=== PATIENT | male | born 1955 | race American Indian/Alaskan Native ===

== ENCOUNTER 2021-02-26 05:15 | Observation (INO) | payer BC, MEDICARE ==
[2021-02-26] MEDS ORDERED: SODIUM CHLORIDE 0.9% 1000 ML 1,000 ML IV ONE ×2 (05:25→07:23)
[2021-02-26 06:21] LABS: Basophils # (Auto) 0.1 K/mm3 (0.0-0.1); Basophils % (Auto) 0.6 % (0.0-1.8); Eosinophils % (Auto) 0.2 % (0.0-4.3); Hematocrit 21.7 % (35.5-45.6); Hemoglobin 7.1 gm/dl (11.8-15.2); Lymphocytes # (Auto) 2.1 K/mm3 (1.2-5.4); Lymphocytes % (Auto) 16.3 % (13.4-35.0); Mean Corpuscular HGB Conc 33 % (32-34); Mean Corpuscular Volume 89 fl (84-94); Monocytes # (Auto) 0.8 K/mm3 (0.0-0.8); Platelet Count 238 K/mm3 (140-440); Red Blood Count 2.44 M/mm3 (3.65-5.03); Red Cell Distribution Width 14.5 % (13.2-15.2)
--- NOTE | 2021-02-26 06:25 | Emergency Department Report ---
ED General Adult HPI - General Chief complaint: Syncope Stated complaint: SYNCOPE Time Seen by Provider: 02/26/21 06:11 Source: patient, EMS Mode of arrival: Stretcher Limitations: No Limitations - History of Present Illness Initial comments: Patient is a 65-year-old male with history of hypertension hypercholesterolemia presents to emergency department for evaluation of a syncopal episode which occurred while he was urinating just prior to arrival. Patient states his found him on the floor, called the ambulance. On medic arrival, patient states he had to defecate, notes his stool has been black x2 days. Patient denies chest pain, complains of mild lightheadedness. Patient denies fever, denies head injury status post fall. Patient does complain of mild left flank pain after falling. - Related Data Allergies Allergy/AdvReac Type Severity Reaction Status Date / Time No Known Allergies Allergy Unverified 02/26/21 05:27 ED Review of Systems ROS: Stated complaint: SYNCOPE Other details as noted in HPI Comment: All other systems reviewed and negative ED Past Medical Hx - Past Medical History Previous Medical History?: Yes Hx Hypertension: Yes Additional medical history: Hyperlipedemia - Social History Smoking Status: Former Smoker ED Physical Exam - General Limitations: No Limitations General appearance: alert, in no apparent distress - Head Head exam: Present: atraumatic, normocephalic - Eye Eye exam: Present: normal appearance - ENT ENT exam: Present: mucous membranes moist - Neck Neck exam: Present: normal inspection - Respiratory Respiratory exam: Present: normal lung sounds bilaterally. Absent: respiratory distress - Cardiovascular Cardiovascular Exam: Present: regular rate, normal rhythm - GI/Abdominal GI/Abdominal exam: Present: soft, normal bowel sounds - Rectal Rectal exam: Present: heme (+) stool - Extremities Exam Extremities exam: Present: normal inspection - Back Exam Back exam: Present: normal inspection - Neurological Exam Neurological exam: Present: alert, oriented X3 - Psychiatric Psychiatric exam: Present: normal affect, normal mood - Skin Skin exam: Present: warm, dry, intact, normal color. Absent: rash ED Course Vital Signs 02/26/21 02/26/21 05:31 07:24 Temperature 97.8 F Pulse Rate 82 Pulse Rate [ 108 H Lying] Pulse Rate [ 99 H Sitting] Pulse Rate [ 113 H Standing] Respiratory 18 Rate Blood Pressure 142/70 Blood Pressure 91/59 [Lying] Blood Pressure 94/58 [Sitting] Blood Pressure 94/52 [Standing] O2 Sat by Pulse 99 Oximetry - Reevaluation(s) Reevaluation #1: 02/26/21 07:31 Patient orthostatic, treated with IV normal saline x1, treated with Protonix 80 mg IV x1 for suspected upper GI bleed. Reevaluation #2: 02/26/21 07:43 [facility] called multiple times without return phone call ED Medical Decision Making - Lab Data Result diagrams: 02/26/21 06:05 02/26/21 06:05 - EKG Data -: EKG Interpreted by Me (Sinus rhythm at 80, no ST-T changes, normal QRS) Critical care attestation.: If time is entered above; I have spent that time in minutes in the direct care of this critically ill patient, excluding procedure time. ED Disposition Clinical Impression: Upper gastrointestinal hemorrhage, Syncope Disposition: OP ADMIT IP TO THIS HOSP Is pt being admited?: Yes Condition: Stable Instructions: Syncope (ED) Referrals: PRIMARY CARE, [Primary Care Provider] - 3-5 Days
[2021-02-26 06:30] LABS: INR 1.25 (0.87-1.13)
[2021-02-26 06:31] LABS: Partial Thromboplastin Time 21.1 Sec. (24.2-36.6)
--- NOTE | 2021-02-26 06:41 | XRay Report ---
CHEST 1 VIEW INDICATION: dyspnea. COMPARISON: None FINDINGS: SUPPORT DEVICES: None. HEART: Within normal limits. LUNGS/PLEURA: No acute air space or interstitial disease. ADDITIONAL FINDINGS: None. IMPRESSION: 1. No acute findings. Signer Name: London Munson MD Signed: 02/26/2021 6:37 AM Workstation Name: [id number]
[2021-02-26 06:43] LABS: Alanine Aminotransferase 13 units/L (7-56); Albumin 3.1 g/dL (3.9-5); BUN/Creatinine Ratio 52; Blood Urea Nitrogen 47 mg/dL (9-20); Calcium 8.1 mg/dL (8.4-10.2); Hemolysis Index 2
[2021-02-26] MEDS ORDERED: PANTOPRAZOLE 40 MG INJ IV ONE (07:27)
--- NOTE | 2021-02-26 08:14 | Cat Scan Report ---
CT ABDOMEN AND PELVIS WITH CONTRAST INDICATION / CLINICAL INFORMATION: Left flank pain post trauma. TECHNIQUE: Axial CT images were obtained through the abdomen and pelvis following the administration of intraven ous contrast. All CT scans at this location are performed using CT dose reduction for ALARA by means of automated exposure control. COMPARISON: None available. FINDINGS: LOWER CHEST: No significant abnormality. LIVER: No significant abnormality. GALLBLADDER: No significant abnormality. PANCREAS: No significant abnormality. SPLEEN: No significant abnormality. ADRENALS: No significant abnormality. KIDNEYS / URETERS: A few left-sided parapelvic and renal cysts are seen. No additional significant ab normality. URINARY BLADDER: No significant abnormality. REPRODUCTIVE ORGANS: No significant abnormality. STOMACH / SMALL BOWEL: The stomach is distended without significant gastric or small bowel abnormalit y. COLON: No significant abnormality. APPENDIX: No significant abnormality. PERITONEUM: No free fluid. No free air. No fluid collection. LYMPH NODES: No significant adenopathy. AORTA / ARTERIES: No significant abnormality. IVC / VEINS: No significant abnormality. SKELETAL SYSTEM: There is a nondisplaced fracture of the posterior 10th rib. There may also be a tiny nondisplaced fracture of the posterior ninth rib. ADDITIONAL FINDINGS: None. IMPRESSION: 1. Nondisplaced fracture of the posterior 10th rib with questionable nondisplaced fracture of the pos terior ninth rib as well. No pneumothorax or solid organ injury. Signer Name: Rk Tubbs MD Signed: 02/26/2021 8:10 AM Workstation Name: [id number]
--- NOTE | 2021-02-26 08:20 | History and Physical Report ---
History of Present Illness Date of examination: 02/26/21 Date of admission: 02/26/21 Chief complaint: GI bleed History of present illness: Patient is a 65-year-old male with history of hypertension hypercholesterolemia currently visiting his son in [facility] from [place] presents to emergency department for evaluation of a syncopal episode which occurred while he was urinating just prior to arrival. Patient states his found him on the floor, called the ambulance. On medic arrival, patient states he had to defecate, notes his stool has been black x2 days. Patient denies chest pain, complains of mild lightheadedness. Patient denies fever, denies head injury status post fall. Patient does complain of mild left flank pain after falling. Which he rates 3 out of 10 intensity otherwise no new complaints. He reports that he takes naproxen daily. Past History Past Medical History: hypertension, hyperlipidemia Past Surgical History: No surgical history Social history: Family history: no significant family history Medications and Allergies Allergies Allergy/AdvReac Type Severity Reaction Status Date / Time No Known Allergies Allergy Unverified 02/26/21 05:27 Active Meds: Active Medications Acetaminophen (Acetaminophen 325 Mg Tab) 650 mg PO Q4H PRN PRN Reason: Pain MILD(1-3)/Fever >100.5/BLEDSOE Albuterol (Albuterol 2.5 Mg/3 Ml Nebu) 2.5 mg IH Q3HRT PRN PRN Reason: Shortness Of Breath Sodium Chloride (Nacl 0.9% 1000 Ml) 1,000 mls @ 999 mls/hr IV BOLUS ONE Stop: 02/26/21 08:23 Last Admin: 02/26/21 07:41 Dose: 999 mls/hr Documented by: Pantoprazole Sodium 80 mg/ (Sodium Chloride) 100 mls @ 10 mls/hr IV DIRECT BRITNI Dextrose/Sodium Chloride (D5/0.45ns) 1,000 mls @ 125 mls/hr IV DIRECT BRITNI Ondansetron HCl (Ondansetron 4 Mg/2 Ml Inj) 4 mg IV Q4H PRN PRN Reason: Nausea And Vomiting Sodium Chloride (Sodium Chloride 0.9% 10 Ml Flush Syringe) 10 ml IV BID BRITNI Sodium Chloride (Sodium Chloride 0.9% 10 Ml Flush Syringe) 10 ml IV PRN PRN PRN Reason: LINE FLUSH Review of Systems Constitutional: chronic pain (LEFT SHOULDER), no weight loss, no weight gain, no fever, no chills, no sweats, no night sweats, no chronic headaches, no poor appetite, no daytime sleepiness Cardiovascular: high blood pressure, no orthopnea, no palpitations, no rapid/i rregular heart beat, no edema, no syncope, no lightheadedness Respiratory: no cough with sputum, no excessive sputum, no shortness of breath, no dyspnea on exertion Gastrointestinal: melena (X 2 DAYS), no abdominal pain, no nausea, no vomiting, no diarrhea, no constipation, no change in bowel habits Musculoskeletal: no low back pain, no muscle weakness Integumentary: no rash, no pruritis, no sores Exam - Physical Exam Narrative exam: VITAL SIGNS: Reviewed. GENERAL: The patient appears normally developed, Vital signs as documented. HEAD: No signs of head trauma. EYES: Pupils are equal. Extraocular motions intact. EARS: Hearing grossly intact. MOUTH: Oropharynx is normal. NECK: No adenopathy, no JVD. CHEST: Chest with clear breath sounds bilaterally. No wheezes, rales, or rhonchi. CARDIAC: Regular rate and rhythm. S1 and S2, without murmurs, gallops, or rubs. VASCULAR: No Edema. Peripheral pulses normal and equal in all extremities. ABDOMEN: Soft, non tender and non distended. No rebound or guarding, and no masses palpated. Bowel Sounds normal. MUSCULOSKELETAL: Tenderness to palpate in the left flank area. Good range of motion of all major joints. Extremities without clubbing, cyanosis or edema. NEUROLOGIC EXAM: Alert and oriented x 3 No focal sensory or strength deficits. Speech normal. Follows commands. PSYCHIATRIC: Mood normal. SKIN: detail exam as documented in skin assessment - Constitutional Vitals: Temp Pulse Resp BP Pulse Ox 97.8 F 108 H 18 91/59 99 02/26/21 05:31 02/26/21 07:24 02/26/21 05:31 02/26/21 07:24 02/26/21 05:31 Results - Labs CBC & Chem 7: 02/26/21 06:05 02/26/21 06:05 Labs: Laboratory Last Values WBC 13.0 K/mm3 (4.5-11.0) H 02/26/21 06:05 RBC 2.44 M/mm3 (3.65-5.03) L 02/26/21 06:05 Hgb 7.1 gm/dl (11.8-15.2) L 02/26/21 06:05 Hct 21.7 % (35.5-45.6) L 02/26/21 06:05 MCV 89 fl (84-94) 02/26/21 06:05 MCH 29 pg (28-32) 02/26/21 06:05 MCHC 33 % (32-34) 02/26/21 06:05 RDW 14.5 % (13.2-15.2) 02/26/21 06:05 Plt Count 238 K/mm3 (140-440) 02/26/21 06:05 Lymph % (Auto) 16.3 % (13.4-35.0) 02/26/21 06:05 [place] % (Auto) 6.0 % (0.0-7.3) 02/26/21 06:05 Eos % (Auto) 0.2 % (0.0-4.3) 02/26/21 06:05 Baso % (Auto) 0.6 % (0.0-1.8) 02/26/21 06:05 Lymph # (Auto) 2.1 K/mm3 (1.2-5.4) 02/26/21 06:05 [place] # (Auto) 0.8 K/mm3 (0.0-0.8) 02/26/21 06:05 Eos # (Auto) 0.0 K/mm3 (0.0-0.4) 02/26/21 06:05 Baso # (Auto) 0.1 K/mm3 (0.0-0.1) 02/26/21 06:05 Seg Neutrophils % 76.9 % (40.0-70.0) H 02/26/21 06:05 Seg Neutrophils # 10.0 K/mm3 (1.8-7.7) H 02/26/21 06:05 PT 15.5 Sec. (12.2-14.9) H 02/26/21 06:05 INR 1.25 (0.87-1.13) H 02/26/21 06:05 APTT 21.1 Sec. (24.2-36.6) L 02/26/21 06:05 Sodium 144 mmol/L (137-145) 02/26/21 06:05 Potassium 3.6 mmol/L (3.6-5.0) 02/26/21 06:05 Chloride 108.3 mmol/L (98-107) H 02/26/21 06:05 Carbon Dioxide 26 mmol/L (22-30) 02/26/21 06:05 Anion Gap 13 mmol/L 02/26/21 06:05 BUN 47 mg/dL (9-20) H 02/26/21 06:05 Creatinine 0.9 mg/dL (0.8-1.3) 02/26/21 06:05 Estimated GFR > 60 ml/min 02/26/21 06:05 BUN/Creatinine Ratio 52 % 02/26/21 06:05 Glucose 236 mg/dL (75-100) H 02/26/21 06:05 Calcium 8.1 mg/dL (8.4-10.2) L 02/26/21 06:05 Total Bilirubin < 0.20 mg/dL (0.1-1.2) 02/26/21 06:05 AST 12 units/L (5-40) 02/26/21 06:05 ALT 13 units/L (7-56) 02/26/21 06:05 Alkaline Phosphatase 44 units/L (35-129) 02/26/21 06:05 Total Protein 5.2 g/dL (6.3-8.2) L 02/26/21 06:05 Albumin 3.1 g/dL (3.9-5) L 02/26/21 06:05 Albumin/Globulin Ratio 1.5 % 02/26/21 06:05 Blood Type O POSITIVE 02/26/21 06:10 Antibody Screen Negative 02/26/21 06:10 Assessment and Plan Assessment and plan: Patient is a 65-year-old male with history of hypertension hypercholesterolemia currently visiting his son in [facility] from [place] presents to emergency department for evaluation of a syncopal episode which occurred while he was urinating just prior to arrival. Patient states his found him on the floor, called the ambulance. On medic arrival, patient states he had to defecate, notes his stool has been black x2 days. Patient denies chest pain, complains of mild lightheadedness. Patient denies fever, denies head injury status post fall. Patient does complain of mild left flank pain after falling. Which he rates 3 out of 10 intensity otherwise no new complaints. He reports that he takes naproxen daily for pain in the left shoulder which is chronic.. IMPRESSION: 1. Nondisplaced fracture of the posterior 10th rib with questionable nondisplaced fracture of the posterior ninth rib as well. No pneumothorax or solid organ injury. GI bleed Suspect Upper Acute Blood Loss Anemia Syncope secondary GI bleed Non displaced Fracture of the posterior 10th AND 9th Rib Hx of Hypertension, with Hypotension Elevated blood sugar possible underlining diabetes Hypercholestrolemia Leukocytosis Plan Admit to Tele Monitor H/H Q 8HRS, Transfuse if less than 7 Pantoprazole Drip GI consulted Insulin therapy Check glycosylated hemoglobin A1c Fall precautions Pain control Avoid Antipletelets SCD for DVT PROPHY Advance Directives: Yes Plan of care discussed with patient/family: Yes
[2021-02-26] MEDS ORDERED: SODIUM CHLORIDE 0.9% 1000 ML 1,000 ML IV SCH (08:30)
[2021-02-26] MEDS ORDERED: hydrALAZINE 20 MG/1 ML INJ IV PRN (09:00)
[2021-02-26] MEDS ORDERED: ACETAMINOPHEN 325 MG TAB PO PRN (09:00)
[2021-02-26] MEDS ORDERED: D5W/0.45% NACL 1,000 ML IV SCH (09:00)
[2021-02-26] MEDS ORDERED: ALBUTEROL 2.5 MG/3 ML NEBU IH PRN (09:00)
[2021-02-26] MEDS ORDERED: ONDANSETRON 4 MG/2 ML INJ IV PRN (09:00)
[2021-02-26] MEDS ORDERED: DEXTROSE 50% IN WATER (25GM) 50 ML SYRINGE IV PRN (09:00)
[2021-02-26] MEDS ORDERED: SODIUM CHLORIDE 0.9% 500 ML 500 ML IV SCH (09:00)
[2021-02-26] MEDS: PANTOPRAZOLE 80 MG in SODIUM CHLORIDE 0.9% 100 ML IV SCH ×2 (10:02→23:18)
[2021-02-26 11:40] LABS: Hematocrit 22.9 % (35.5-45.6); Hemoglobin 7.5 gm/dl (11.8-15.2)
[2021-02-26] MEDS: INSULIN LISPRO 100 UNIT/ML SUB-Q SCH ×3 (12:26→23:19)
--- NOTE | 2021-02-26 15:49 | Gastroenterology Consultation ---
History of Present Illness - Reason for Consult Consult date: 02/26/21 gi bleed Requesting physician: TAE BRADFORD - History of Present Illness Patient is a 65-year-old male no known history of GI bleeding currently visiting his son in [facility] from [place] presents to emergency department for evaluation of a syncopal episode. Patient reports dark stool for the last 2 days. He reports it is been formed but not liquidy. Denies any abdominal pain. He does report taking Naprosyn daily for his shoulder pain Reports never had an upper endoscopy, no known family history of gastric cancer or gastric ulcers Reports had a colonoscopy that was normal approximately 10 years ago back home Obtained/updated/reviewed patient's current medications Past History Past Medical History: hypertension, hyperlipidemia Past Surgical History: No surgical history Social history: Family history: no significant family history Medications and Allergies Allergies Allergy/AdvReac Type Severity Reaction Status Date / Time No Known Allergies Allergy Unverified 02/26/21 05:27 Home Medications Medication Instructions Recorded Confirmed Last Taken Type Naprosyn 02/26/21 Unknown History Active Meds: Active Medications Acetaminophen (Acetaminophen 325 Mg Tab) 650 mg PO Q4H PRN PRN Reason: Pain MILD(1-3)/Fever >100.5/[place]EDSOE Albuterol (Albuterol 2.5 Mg/3 Ml Nebu) 2.5 mg IH Q3HRT PRN PRN Reason: Shortness Of Breath Dextrose (Dextrose 50% In Water (25gm) 50 Ml Syringe) 50 ml IV Q30MIN PRN; Protocol PRN Reason: Hypoglycemia Hydralazine HCl (Hydralazine 20 Mg/1 Ml Inj) 10 mg IV Q4H PRN PRN Reason: Hypertension Pantoprazole Sodium 80 mg/ (Sodium Chloride) 100 mls @ 10 mls/hr IV DIRECT BRITNI Last Admin: 02/26/21 10:02 Dose: 8 mg/hr, 10 mls/hr Documented by: Dextrose/Sodium Chloride (D5ns) 1,000 mls @ 75 mls/hr IV DIRECT BRITNI Sodium Chloride (Nacl 0.9% 500 Ml) 500 mls @ 0 mls/hr IV ONCE BRITNI Stop: 02/26/21 19:00 Insulin Human Lispro (Insulin Lispro 100 Unit/Ml) 0 unit SUB-Q Q6HR BRITNI; Protocol Last Admin: 02/26/21 12:26 Dose: Not Given Documented by: Ondansetron HCl (Ondansetron 4 Mg/2 Ml Inj) 4 mg IV Q4H PRN PRN Reason: Nausea And Vomiting Sodium Chloride (Sodium Chloride 0.9% 10 Ml Flush Syringe) 10 ml IV BID BRITNI Last Admin: 02/26/21 10:28 Dose: 10 ml Documented by: Sodium Chloride (Sodium Chloride 0.9% 10 Ml Flush Syringe) 10 ml IV PRN PRN PRN Reason: LINE FLUSH Review of Systems - Review of Systems All systems: negative (10 Systems reviewed and negative except as mentioned above in the history of present illness) Exam - Constitutional Vital Signs: Temp Pulse Resp BP Pulse Ox 97.8 F 102 H 16 158/53 96 02/26/21 05:31 02/26/21 15:42 02/26/21 15:42 02/26/21 15:42 02/26/21 15:42 General appearance: no acute distress - EENT Eyes: EOM intact ENT: hearing intact - Neck Neck: supple - Respiratory Respiratory effort: normal - Cardiovascular Rhythm: other (Slightly tachycardic) - Gastrointestinal General gastrointestinal: Present: soft, non-tender - Integumentary Integumentary: Present: dry - Neurologic Neurological: alert and oriented x3 - Psychiatric Psychiatric: appropriate mood/affect - Labs CBC & Chem 7: 02/26/21 11:17 02/26/21 06:05 Lab Results: Laboratory Results - last 24 hr 02/26/21 02/26/21 02/26/21 06:05 06:05 06:05 WBC 13.0 H RBC 2.44 L Hgb 7.1 L Hct 21.7 L MCV 89 MCH 29 MCHC 33 RDW 14.5 Plt Count 238 Lymph % (Auto) 16.3 [place] % (Auto) 6.0 Eos % (Auto) 0.2 Baso % (Auto) 0.6 Lymph # (Auto) 2.1 [place] # (Auto) 0.8 Eos # (Auto) 0.0 Baso # (Auto) 0.1 Seg Neutrophils % 76.9 H Seg Neutrophils # 10.0 H PT 15.5 H INR 1.25 H APTT 21.1 L Sodium 144 Potassium 3.6 Chloride 108.3 H Carbon Dioxide 26 Anion Gap 13 BUN 47 H Creatinine 0.9 Estimated GFR > 60 BUN/Creatinine Ratio 52 Glucose 236 H Hemoglobin A1c Calcium 8.1 L Total Bilirubin < 0.20 AST 12 ALT 13 Alkaline Phosphatase 44 Total Protein 5.2 L Albumin 3.1 L Albumin/Globulin Ratio 1.5 Blood Type Antibody Screen Crossmatch 02/26/21 02/26/21 02/26/21 06:05 06:10 11:17 WBC RBC Hgb 7.5 L Hct 22.9 L MCV MCH MCHC RDW Plt Count Lymph % (Auto) [place] % (Auto) Eos % (Auto) Baso % (Auto) Lymph # (Auto) [place] # (Auto) Eos # (Auto) Baso # (Auto) Seg Neutrophils % Seg Neutrophils # PT INR APTT Sodium Potassium Chloride Carbon Dioxide Anion Gap BUN Creatinine Estimated GFR BUN/Creatinine Ratio Glucose Hemoglobin A1c 5.8 Calcium Total Bilirubin AST ALT Alkaline Phosphatase Total Protein Albumin Albumin/Globulin Ratio Blood Type O POSITIVE Antibody Screen Negative Crossmatch See Detail Assessment and Plan Given patient reports melena and chronic use of NSAIDs upper GI source is highest in the differential diagnosis Therefore continue PPI drip and plan on EGD tomorrow tentatively on the schedule for noon I placed patient on a clear liquid diet and n.p.o. past midnight in anticipation of this -Differential diagnosis would be peptic ulcer disease, gastric malignancy, AVM, etc. - Patient Problems (1) Melena Current Visit: Yes Status: Acute (2) Anemia due to GI blood loss Current Visit: Yes Status: Acute (3) Upper gastrointestinal hemorrhage Current Visit: Yes Status: Acute
[2021-02-26 19:11] LABS: Hematocrit 21.4 % (35.5-45.6); Hemoglobin 6.9 gm/dl (11.8-15.2)
[2021-02-26] MEDS ORDERED: SODIUM CHLORIDE 0.9% 250ML 250 ML ONE (22:55)
[2021-02-26] MEDS: D5W/0.9% NACL 1,000 ML IV SCH (23:18)
[2021-02-27] MEDS ORDERED: SODIUM CHLORIDE 0.9% 250ML 250 ML IV ONE (01:47)
[2021-02-27] MEDS: INSULIN LISPRO 100 UNIT/ML SUB-Q SCH ×3 (06:42→22:30)
[2021-02-27 06:56] LABS: Basophils # (Auto) 0.1 K/mm3 (0.0-0.1); Basophils % (Auto) 0.6 % (0.0-1.8); Eosinophils # (Auto) 0.1 K/mm3 (0.0-0.4); Eosinophils % (Auto) 0.4 % (0.0-4.3); Hematocrit 23.7 % (35.5-45.6); Lymphocytes # (Auto) 3.1 K/mm3 (1.2-5.4); Mean Corpuscular HGB Conc 34 % (32-34); Mean Corpuscular Volume 88 fl (84-94); Monocytes # (Auto) 1.1 K/mm3 (0.0-0.8); Platelet Count 190 K/mm3 (140-440); Red Blood Count 2.68 M/mm3 (3.65-5.03)
[2021-02-27 07:00] LABS: Blood Urea Nitrogen 23 mg/dL (9-20); Calcium 8.3 mg/dL (8.4-10.2); Hemolysis Index 1
[2021-02-27 07:03] LABS: BUN/Creatinine Ratio 33
[2021-02-27] MEDS: PANTOPRAZOLE 80 MG in SODIUM CHLORIDE 0.9% 100 ML IV SCH ×2 (09:36→21:06)
--- NOTE | 2021-02-27 11:10 | Progress Note ---
Assessment and Plan Assessment and plan: Patient is a 65-year-old male with history of hypertension hypercholesterolemia currently visiting his son in [facility] from [place] presents to emergency department for evaluation of a syncopal episode which occurred while he was urinating just prior to arrival. Patient states his found him on the floor, called the ambulance. On medic arrival, patient states he had to defecate, notes his stool has been black x2 days. Patient denies chest pain, complains of mild lightheadedness. Patient denies fever, denies head injury status post fall. Patient does complain of mild left flank pain after falling. Which he rates 3 out of 10 intensity otherwise no new complaints. He reports that he takes naproxen daily for pain in the left shoulder which is chronic.. IMPRESSION: 1. Nondisplaced fracture of the posterior 10th rib with questionable nondisplaced fracture of the posterior ninth rib as well. No pneumothorax or solid organ injury. GI bleed Suspect Upper Acute Blood Loss Anemia Syncope secondary GI bleed Non displaced Fracture of the posterior 10th AND 9th Rib Hx of Hypertension, with Hypotension Elevated blood sugar possible underlining diabetes Hypercholestrolemia Leukocytosis Plan 02/27: Patient transfused one unit PRBC yesterday. EGD done today revealed 4MM ulcer. 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 Trend hemog lobin. If hemoglobin stable and no more melena then patient can be discharged tomorrow. He will need to follow-up with his regular radar tester in [place] in 4 to 6 weeks and I will mail him a letter with biopsy results" Monitor H/H Q 8HRS, Transfuse if less than 7 Pantoprazole Drip GI consulted Insulin therapy Check glycosylated hemoglobin A1c Fall precautions Pain control Avoid Antipletelets SCD for DVT PROPHY History Interval history: Patient seen and examined, no acute distress at this time, No dark stool Hospitalist Physical - Physical exam Narrative exam: VITAL SIGNS: Reviewed. GENERAL: The patient appears normally developed, Vital signs as documented. HEAD: No signs of head trauma. EYES: Pupils are equal. Extraocular motions intact. EARS: Hearing grossly intact. MOUTH: Oropharynx is normal. NECK: No adenopathy, no JVD. CHEST: Chest with clear breath sounds bilaterally. No wheezes, rales, or rhonchi. CARDIAC: Regular rate and rhythm. S1 and S2, without murmurs, gallops, or rubs. VASCULAR: No Edema. Peripheral pulses normal and equal in all extremities. ABDOMEN: Soft, non tender and non distended. No rebound or guarding, and no masses palpated. Bowel Sounds normal. MUSCULOSKELETAL: Tenderness to palpate in the left flank area. Good range of motion of all major joints. Extremities without clubbing, cyanosis or edema. NEUROLOGIC EXAM: Alert and oriented x 3 No focal sensory or strength deficits. Speech normal. Follows commands. PSYCHIATRIC: Mood normal. SKIN: detail exam as documented in skin assessment - Constitutional Vitals: Temp Pulse Resp BP Pulse Ox 97.7 F 82 18 143/71 100 02/27/21 07:48 02/27/21 07:48 02/27/21 07:48 02/27/21 07:48 02/27/21 10:34 Results - Labs CBC & Chem 7: 02/27/21 05:18 02/27/21 05:18 Labs: Laboratory Last Values WBC 12.3 K/mm3 (4.5-11.0) H 02/27/21 05:18 RBC 2.68 M/mm3 (3.65-5.03) L 02/27/21 05:18 Hgb 8.0 gm/dl (11.8-15.2) L 02/27/21 05:18 Hct 23.7 % (35.5-45.6) L 02/27/21 05:18 MCV 88 fl (84-94) 02/27/21 05:18 MCH 30 pg (28-32) 02/27/21 05:18 MCHC 34 % (32-34) 02/27/21 05:18 RDW 15.0 % (13.2-15.2) 02/27/21 05:18 Plt Count 190 K/mm3 (140-440) 02/27/21 05:18 Lymph % (Auto) 25.0 % (13.4-35.0) 02/27/21 05:18 [place] % (Auto) 9.0 % (0.0-7.3) H 02/27/21 05:18 Eos % (Auto) 0.4 % (0.0-4.3) 02/27/21 05:18 Baso % (Auto) 0.6 % (0.0-1.8) 02/27/21 05:18 Lymph # (Auto) 3.1 K/mm3 (1.2-5.4) 02/27/21 05:18 [place] # (Auto) 1.1 K/mm3 (0.0-0.8) H 02/27/21 05:18 Eos # (Auto) 0.1 K/mm3 (0.0-0.4) 02/27/21 05:18 Baso # (Auto) 0.1 K/mm3 (0.0-0.1) 02/27/21 05:18 Seg Neutrophils % 65.0 % (40.0-70.0) 02/27/21 05:18 Seg Neutrophils # 8.0 K/mm3 (1.8-7.7) H 02/27/21 05:18 PT 15.5 Sec. (12.2-14.9) H 02/26/21 06:05 INR 1.25 (0.87-1.13) H 02/26/21 06:05 APTT 21.1 Sec. (24.2-36.6) L 02/26/21 06:05 Sodium 144 mmol/L (137-145) 02/27/21 05:18 Potassium 3.8 mmol/L (3.6-5.0) 02/27/21 05:18 Chloride 109.6 mmol/L (98-107) H 02/27/21 05:18 Carbon Dioxide 25 mmol/L (22-30) 02/27/21 05:18 Anion Gap 13 mmol/L 02/27/21 05:18 BUN 23 mg/dL (9-20) H 02/27/21 05:18 Creatinine 0.7 mg/dL (0.8-1.3) L 02/27/21 05:18 Estimated GFR > 60 ml/min 02/27/21 05:18 BUN/Creatinine Ratio 33 % 02/27/21 05:18 Glucose 127 mg/dL (75-100) H 02/27/21 05:18 POC Glucose 126 mg/dL (70-105) H 02/27/21 05:44 Hemoglobin A1c 5.8 % (4-6) 02/26/21 06:05 Calcium 8.3 mg/dL (8.4-10.2) L 02/27/21 05:18 Total Bilirubin < 0.20 mg/dL (0.1-1.2) 02/26/21 06:05 AST 12 units/L (5-40) 02/26/21 06:05 ALT 13 units/L (7-56) 02/26/21 06:05 Alkaline Phosphatase 44 units/L (35-129) 02/26/21 06:05 Total Protein 5.2 g/dL (6.3-8.2) L 02/26/21 06:05 Albumin 3.1 g/dL (3.9-5) L 02/26/21 06:05 Albumin/Globulin Ratio 1.5 % 02/26/21 06:05 Blood Type O POSITIVE 02/26/21 06:10 Antibody Screen Negative 02/26/21 06:10 Crossmatch See Detail 02/26/21 06:10 [place]/IV: Voiding Method Toilet Active Medications - Current Medications Current Medications: Generic Name Dose Route Start Last Admin Trade Name Freq PRN Reason Stop Dose Admin Acetaminophen 650 mg 02/26/21 09:00 Acetaminophen 325 Mg Tab PO Q4H PRN Pain MILD(1-3)/Fever >100.5/[place] Albuterol 2.5 mg 02/26/21 09:00 Albuterol 2.5 Mg/3 Ml Nebu IH Q3HRT PRN Shortness Of Breath Dextrose 50 ml 02/26/21 09:00 Dextrose 50% In Water (25gm) 50 Ml Syringe IV Q30MIN PRN Hypoglycemia Protocol Hydralazine HCl 10 mg 02/26/21 09:00 Hydralazine 20 Mg/1 Ml Inj IV Q4H PRN Hypertension Pantoprazole Sodium 80 mg/ 100 mls @ 10 mls/hr 02/26/21 09:00 02/27/21 09:36 Sodium Chloride IV 8 mg/hr DIRECT BRITNI 10 mls/hr Administration 8 MG/HR Dextrose/Sodium Chloride 1,000 mls @ 75 mls/hr 02/26/21 09:00 02/26/21 23:18 D5ns IV 75 mls/hr DIRECT BRITNI Administration Insulin Human Lispro 0 unit 02/26/21 09:00 02/27/21 06:42 Insulin Lispro 100 Unit/Ml SUB-Q Not Given Q6HR BRITNI Protocol Ondansetron HCl 4 mg 02/26/21 09:00 Ondansetron 4 Mg/2 Ml Inj IV Q4H PRN Nausea And Vomiting Sodium Chloride 10 ml 02/26/21 10:00 02/26/21 21:36 Sodium Chloride 0.9% 10 Ml Flush Syringe IV 10 ml BID BRITNI Administration Sodium Chloride 10 ml 02/26/21 09:00 Sodium Chloride 0.9% 10 Ml Flush Syringe IV PRN PRN LINE FLUSH
[2021-02-27] MEDS ORDERED: WATER FOR IRRIG STERILE 250 ML BOTTLE IR ONE (11:24)
[2021-02-27] MEDS ORDERED: WATER FOR IRRIG STERILE 1,000 ML BOTTLE ONE (11:24)
[2021-02-27] MEDS ORDERED: SIMETHICONE 40 MG/0.6 ML ORAL DROP 30ML PO ONE (11:26)
--- NOTE | 2021-02-27 11:34 | Anesthesia Consultation ---
Anesthesia Consult and Med Hx Date of service: 02/27/21 - Airway Anesthetic Teeth Evaluation: Good ROM Head & Neck: Adequate Mental/Hyoid Distance: Adequate Mallampati Class: Class II Intubation Access Assessment: Probably Good - Pre-Operative Health Status ASA Pre-Surgery Classification: ASA3 - Pulmonary Hx Smoking: Yes (currently quit) - Cardiovascular System Hx Hypertension: Yes Hx Coronary Artery Disease: No (high cholesterol) - Central Nervous System Hx Back Pain: Yes (shoulder pain) - Gastrointestinal Hx Ulcer: Yes (dark stool x 2 days) Hx Gastroesophageal Reflux Disease: Yes - Endocrine Hx Non-Insulin Dependent Diabetes: Yes (elevated BG) - Hematic Hx Anemia: Yes
--- NOTE | 2021-02-27 11:35 | Anesthesia Day of Surgery ---
Anesthesia Day of Surgery - Day of Surgery Patient Examined: Yes Patient H&P Reviewed: Yes Patient is NPO: Yes
[2021-02-27] MEDS ORDERED: SODIUM CHLORIDE 0.9% 1000 ML 1,000 ML ONE (11:38)
[2021-02-27] MEDS ORDERED: LIDOCAINE MPF (2%) 20 MG/1 ML VIAL 5 ML ONE (12:14)
[2021-02-27] MEDS ORDERED: propofoL 200 MG/20 ML VIAL IV ONE (12:15)
--- NOTE | 2021-02-27 12:54 | Operative Report ---
Operative Report Operative Report: DOS: 02/27/2021 SURGEON: Kailash Matos MD EGD WITH BIOPSY REPORT PREOPERATIVE DIAGNOSIS and POSTOPERATIVE DIAGNOSIS: Melena ESTIMATED BLOOD LOSS: Minimal DESCRIPTION OF PROCEDURE: A high-resolution EGD scope was passed through the oropharynx, esophagus, stomach, and second portion of duodenum. The scope was carefully withdrawn. Retroflexion was performed in the stomach. At the end of the procedure, the scope was cleaned using normal technique. Vital signs monitored continuously throughout. SEDATION: Provided by Anesthesiology Services. COMPLICATIONS: None. FINDINGS: * No gross lesions in the entire examined duodenum * 4 mm ulcer with overlying white exudate which did not wash off in the gastric antrum. No high risk stigmata visualized. Biopsies were taken to rule out H. Pylori infection. 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 Cold biopsy forceps obtained rule out Rolon's, also to rule out Aiyana as detailed below * Few scattered superficial white plaques in the mid and distal esophagus, biopsies obtained at the same bottle as the Rolon's biopsy * Remainder of exam unremarkable RECOMMENDATIONS: Complete pantoprazole drip overnight and then switch to pantoprazole 40 mg twice daily tomorrow morning. Trend hemoglobin. If hemoglobin stable and no more melena then patient can be discharged tomorrow. He will need to follow-up with his regular teacher assistant in [place] in 4 to 6 weeks and I will mail him a letter with biopsy results
--- NOTE | 2021-02-27 13:45 | Electrocardiograph Report ---
[facility] Test Date: 2021-02-26 Test Time: 05:50:12 Pat Name: DOMINICK BRUMFIELD Department: Room: A456 1 Gender: M Personalized Living Manager: : 1955 Requested By: RONY GIL Order Number: [id number] Reading MD: Anjali Chowdary Measurements Intervals [place] Rate: 80 P: 72 WI: 141 QRS: 33 QRSD: 84 T: 67 QT: 449 QTc: 518 Interpretive Statements Sinus rhythm Prolonged QT interval Nonspecific ST abnormality No previous ECG available for comparison Electronically Signed On 02-27-2021 13:44:38 EDT by Anjali Chowdary
--- NOTE | 2021-02-27 15:33 | Post Anesthesia Evaluation ---
- Post Anesthesia Evaluation Patient Participated: Yes Airway Patent: Yes Stable Respiratory Function: Yes Nausea/Vomiting: No Temp > 96.8F: Yes Pain Manageable: Yes Adequeate Hydration: Yes Anesthesia Complications: No Block Receding Appropriately: Not Applicable Patient on Ventilator: No
[2021-02-27] MEDS ORDERED: MORPHINE 2 MG/1 ML INJ IV PRN (22:45)
[2021-02-27] MEDS: D5W/0.9% NACL 1,000 ML IV SCH (23:40)
[2021-02-28] MEDS: INSULIN LISPRO 100 UNIT/ML SUB-Q SCH ×2 (01:47→05:23)
--- NOTE | 2021-02-28 07:55 | Gastroenterology Progress Note ---
Assessment and Plan No more clinical evidence of bleeding Hemoglobin from this morning is not resulted. From GI standpoint as long as hemoglobin stable patient can be discharged with pantoprazole 40 mg twice daily he should follow-up with his records management analyst in [place] Biopsy results not back yet. I will send the patient a letter with the biopsy results in the mail when they return - Patient Problems (1) Melena Current Visit: Yes Status: Acute (2) Anemia due to GI blood loss Current Visit: Yes Status: Acute (3) Upper gastrointestinal hemorrhage Current Visit: Yes Status: Acute Subjective Date of service: 02/28/21 Principal diagnosis: gi bleed Interval history: Hgb not yet resulted for today Reports no bowel movements today Objective - Constitutional Vitals: Temp Pulse Resp BP Pulse Ox 99.6 F 82 17 133/68 98 02/28/21 03:41 02/28/21 03:41 02/28/21 03:41 02/28/21 03:41 02/28/21 03:41 General appearance: no acute distress - EENT ENT: hearing intact - Respiratory Respiratory effort: normal - Gastrointestinal General gastrointestinal: Present: soft - Labs CBC & Chem 7: 02/27/21 05:18 02/27/21 05:18 Labs: Laboratory Results - last 24 hr 02/27/21 02/27/21 02/28/21 15:51 23:49 05:17 POC Glucose 135 H 109 H 135 H
[2021-02-28 08:30] VITALS: BP 138/63
[2021-02-28 08:45] LABS: Hematocrit 25.6 % (35.5-45.6); Hemoglobin 8.5 gm/dl (11.8-15.2)
--- NOTE | 2021-02-28 09:13 | Discharge Summary ---
Providers - Providers Date of Admission: 02/27/21 13:52 Date of discharge: 02/28/21 Attending physician: SHOSHANA HURLEY 02/26/21 08:14 Consult to Physician [CONS] Routine Comment: Consulting Provider: NIGEL GARCIA Physician Instructions: Reason For Exam: GI BLEED Primary care physician: REFRACTORY SPECIALIST Hospitalization Condition: Stable Hospital course: 65-year-old male with history of hypertension hypercholesterolemia currently visiting his son in [facility] from [place] presents to emergency department for evaluation of a syncopal episode which occurred while he was urinating just prior to arrival. Patient states his found him on the floor, called the ambulance. On medic arrival, patient states he had to defecate, notes his stool has been black x2 days. Patient denies chest pain, complains of mild lightheadedness. Patient denies fever, denies head injury status post fall. Patient does complain of mild left flank pain after falling. Which he rates 3 out of 10 intensity otherwise no new complaints. He reports that he takes naproxen daily. Hospital course Here in the ER, patient was noted to have hemoglobin of 7.1. He was admitted for further evaluation. GI was consulted for further evaluation. Etiology of melena likely from chronic NSAID use. Patient was started on PPI drip and EGD was scheduled. He had EGD showed a 4 mm ulcer overlying the gastric antrum. 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 Biopsy was obtained. His hemoglobin dropped to 6.9 and he received 1 unit PRBCs. His PPI drip has been switched to p.o. His hemoglobin has remained stable - 8.5. and he will be discharged home to continue PPI. He has been advised to follow-up with GI in [facility]. He agrees with management and plan. He has been told to avoid NSAIDS for now. He agrees. Disposition: TO HOME OR SELFCARE Final Discharge Diagnosis (Prints w/discharge instructions): Acute on chronic anemia Time spent for discharge: 36mins - Discharge Diagnoses (1) Anemia due to GI blood loss Status: Acute (2) Melena Status: Acute (3) Upper gastrointestinal hemorrhage Status: Acute (4) Closed traumatic nondisplaced fracture of one rib Status: Acute Core Measure Documentation - Palliative Care Palliative Care/ Comfort Measures: Not Applicable - Core Measures Any of the following diagnoses?: none Exam - Constitutional Vitals: Temp Pulse Resp BP Pulse Ox 99.4 F 82 18 138/63 100 02/28/21 07:41 02/28/21 08:27 02/28/21 07:41 02/28/21 07:41 02/28/21 08:31 General appearance: Present: no acute distress, well-nourished - EENT Eyes: Present: PERRL ENT: hearing intact, clear oral mucosa - Neck Neck: Present: supple, normal ROM - Respiratory Respiratory effort: normal Respiratory: bilateral: CTA - Cardiovascular Heart Sounds: Present: S1 & S2. Absent: rub, click - Extremities Extremities: pulses symmetrical, No edema Peripheral Pulses: within normal limits - Abdominal General gastrointestinal: Present: soft, non-tender, non-distended, normal bowel sounds Male genitourinary: Present: normal - Integumentary Integumentary: Present: clear, warm, dry - Musculoskeletal Musculoskeletal: gait normal, strength equal bilaterally - Psychiatric Psychiatric: appropriate mood/affect, intact judgment & insight - Neurologic Neurologic: CNII-XII intact, moves all extremities Plan Diet: low salt Additional Instructions: Continue pantoprazole as ordered. Follow-up with GI in the office in 1 to 2 weeks. Auto Dealer will call you to inform you about the biopsy results. Follow up with: PRIMARY CARE, [Primary Care Provider] - 3-5 Days Forms: Work/School Release Form Prescriptions: Pantoprazole [Protonix TAB] 40 mg PO BID #120 tablet
[2021-02-28] MEDS ORDERED: PANTOPRAZOLE 40 MG TAB PO SCH (16:30)
== END 2021-02-28 12:15 | disposition home or self-care (01) ==
LOC: ED 05:15 → 4A 07:43 → INTOOBSV 02-27 13:52 → OBSVTOIN 02-27 13:52
PROVIDERS: ADMIT Internal Medicine; ATTEND Internal Medicine
DX: K92.2 Gastrointestinal hemorrhage, unspecified (principal); S22.42XA Multiple fractures of ribs, left side, initial encounter for closed fracture; D50.0 Iron deficiency anemia secondary to blood loss (chronic); I10 Essential (primary) hypertension; E78.00 Pure hypercholesterolemia, unspecified; R55 Syncope and collapse; I95.9 Hypotension, unspecified; D72.829 Elevated white blood cell count, unspecified; Z79.4 Long term (current) use of insulin; Z87.891 Personal history of nicotine dependence; W18.30XA Fall on same level, unspecified, initial encounter; Y93.89 Activity, other specified; Y92.89 Other specified places as the place of occurrence of the external cause; Y99.8 Other external cause status
CPT/HCPCS: 36415; 36430; 43239; 71045; 74177; 80048; 80053; 82962; 83036; 85014; 85018; 85025; 85610; 85730; 86850; 86900; 86901; 86920; 88305; 88342; 93005; 94640; 96361; 96365; 96366; 96376; 99285; C9113; G0378; J2270; J2704; J7030; J7042; J7050; P9016; Q9967; 96374; 96375